=== PATIENT | male | born 1975 | race Caucasian/White ===

== ENCOUNTER 2018-03-30 08:42 | Day surgery (SDC) | payer BC ==
[~2018-03-30] VITALS: Ht 177.8 cm; Wt 93.9 kg
[2018-03-30] MEDS ORDERED: MIDAZOLAM 1 MG/ML, 2ML ONE (09:11)
[2018-03-30] MEDS ORDERED: FENTANYL PF 250 MCG/5ML ONE (09:12)
[2018-03-30] MEDS ORDERED: AMPH20CA7 PO (09:13)
[2018-03-30] MEDS ORDERED: LACTATED RINGERS 1,000 ML IV SCH (09:41)
[2018-03-30 09:42] VITALS: BP 138/94
[2018-03-30] MEDS ORDERED: VANCOMYCIN 500 MG ONE (09:57)
[2018-03-30] MEDS ORDERED: BUPIVACAINE/PF 0.5% ONE (09:57)
[2018-03-30] MEDS ORDERED: OXYcodone 5 MG/5 ML ORAL.SOL UDC PO PRN (10:00)
[2018-03-30] MEDS ORDERED: hydrALAzine 20 MG/ML, 1ML IV PRN (10:00)
[2018-03-30] MEDS ORDERED: MEPERIDINE/PF 25MG/0.5ML IVPush PRN (10:00)
[2018-03-30] MEDS ORDERED: PROMETHAZINE 25 MG/ML, 1ML IM PRN ×2 (10:00)
[2018-03-30] MEDS ORDERED: PROMETHAZINE 25 MG SUPP PR PRN (10:00)
[2018-03-30] MEDS ORDERED: MORPHINE SULFATE 4 MG/ML, 1ML IVPush PRN (10:00)
[2018-03-30] MEDS ORDERED: LABETALOL 5MG/ML, 20ML IV PRN (10:00)
[2018-03-30] MEDS ORDERED: PROMETHAZINE 12.5 MG SUPP PR PRN (10:00)
[2018-03-30] MEDS ORDERED: PROMETHAZINE 25 MG/ML, 1ML IV PRN (10:00)
[2018-03-30] MEDS ORDERED: ACETAMINOPHEN 325 MG TABLET PO PRN (10:00)
[2018-03-30] MEDS ORDERED: ONDANSETRON ODT 8 MG PO PRN (10:00)
[2018-03-30] MEDS ORDERED: FENTANYL PF 100 MCG/2ML IV PRN (10:00)
[2018-03-30] MEDS ORDERED: ONDANSETRON 2MG/ML, 2ML IV PRN (10:00)
[2018-03-30] MEDS ORDERED: GLYCOPYRROLATE 0.2MG/1ML, 5ML ONE (10:15)
[2018-03-30] MEDS ORDERED: ROCURONIUM 10MG/ML,5ML ONE (10:15)
[2018-03-30] MEDS ORDERED: PROPOFOL 10 MG/ML, 20ML ONE (10:15)
[2018-03-30] MEDS ORDERED: ONDANSETRON 2MG/ML, 2ML ONE (10:15)
[2018-03-30] MEDS ORDERED: CEFAZOLIN 1,000 MG ONE (10:15)
[2018-03-30] MEDS ORDERED: NEOSTIGMINE 1 MG/ML, 10ML ONE (10:15)
[2018-03-30] MEDS ORDERED: DEXAMETHASONE 4 MG/ML, 1ML ONE (10:15)
[2018-03-30] MEDS ORDERED: KETOROLAC 30 MG/1 ML ONE (10:55)
[2018-03-30] MEDS ORDERED: OXYcodone 5 MG/5 ML ORAL.SOL UDC ONE (10:56)
[2018-03-30] MEDS ORDERED: KETOROLAC 30 MG/1 ML IVPush SCH (11:00)
[2018-03-30] MEDS ORDERED: HYDROmorphone 2 MG/ML, 1ML ONE (11:07)
[2018-03-30] MEDS: HYDROmorphone 2 MG/ML, 1ML IVPush PRN ×2 (11:09→11:14)
[2018-03-30] MEDS ORDERED: MEPERIDINE/PF 50 MG/ML ONE (11:19)
== END 2018-03-30 12:35 | disposition home or self-care (01) ==
LOC: OUT 08:42
PROVIDERS: ATTEND Orthopaedic Surgery Foot and Ankle Surgery
DX: T81.30XA Disruption of wound, unspecified, initial encounter (principal); Z88.8 Allergy status to other drugs, medicaments and biological substances; Y83.8 Other surgical procedures as the cause of abnormal reaction of the patient, or of later complication, without mention of misadventure at the time of the procedure; Y92.89 Other specified places as the place of occurrence of the external cause
CPT/HCPCS: 13160; 15275; J0690; J1100; J1170; J1885; J2175; J2250; J2405; J2704; J2710; J3010; J3370; J3490; J3590; J7120; C1762